=== PATIENT | male | born 1980 | race Two or more races ===

== ENCOUNTER 2018-07-12 12:26 | Emergency (ER) | payer OTHER ==
[~2018-07-12] VITALS: Ht 188 cm; Wt 104.3 kg
[2018-07-12] MEDS ORDERED: Ketorolac 60mg Inj IM ONE (13:15)
[2018-07-12 14:02] VITALS: BP 146/85
--- NOTE | 2018-07-12 14:07 | Emergency Room Report ---
History of Present Illness General Chief Complaint: Multiple Trauma/Fall Source: Patient Present Illness HPI This patient states he was on a ramp loading boxes and he lost his footing and fell hitting his back. He states the wind was knocked out of him. He has pain in his right lateral mid back. He denies chest pain. He denies shortness of breath. He denies abdominal pain. He denies head injury or trauma. He has no other complaints. Allergies: Coded Allergies: No Known Allergies (Unverified , 07/12/18) Patient History Past Medical History: none Social History: Denies: smoking, alcohol use, drug use Reviewed Nursing Documentation: PMH: Agreed; PSxH: Agreed Nursing Documentation-PMH Past Medical History: No Stated History Review of Systems All Other Systems: negative except mentioned in HPI Physical Exam Vital Signs Date Time Temp Pulse Resp B/P (MAP) Pulse Ox O2 Delivery O2 Flow Rate FiO2 07/12/18 12:22 98.2 68 17 146/85 98 Room Air 98.2 Sp02 EP Interpretation: reviewed, normal General Appearance: no apparent distress, alert, GCS 15, non-toxic Head: normocephalic, atraumatic Eyes: bilateral eye normal inspection, bilateral eye PERRL ENT: hearing grossly normal, normal pharynx, no angioedema, normal voice Neck: full range of motion, supple/symm/no masses Respiratory: chest non-tender, lungs clear, normal breath sounds, no respiratory distress, no retraction, no accessory muscle use, speaking full sentences Cardiovascular #1: regular rate, rhythm, no edema Gastrointestinal: normal bowel sounds, non tender, soft, non-distended, no guarding, no rebound Rectal: deferred Musculoskeletal: gait/station normal, normal range of motion, other - TTP mid back paraspinal m. No bony tenderness. Neurologic: alert, oriented x3, responsive, motor strength/tone normal, sensory intact, speech normal Psychiatric: judgement/insight normal, memory normal, mood/affect normal, no suicidal/homicidal ideation Skin: normal color, no rash, warm/dry, well hydrated Medical Decision Making Diagnostic Impression: Primary Impression: Back sprain ER Course This patient has a clinical presentation consistent with back muscle strain. There are no red flags on physical exam or history that would make me concerned for underlying fracture. Therefore, I do not feel that I need to obtain imaging studies. The patient has pain with range of motion and has tenderness to palpation along the muscle. There is no evidence of compartment syndrome. There is no neurologic deficit. The patient was instructed on supportive home measures. No emergency medical condition was identified. The patient was given return precautions and followup instructions. Last Vital Signs Date Time Temp Pulse Resp B/P (MAP) Pulse Ox O2 Delivery O2 Flow Rate FiO2 07/12/18 12:22 98.2 68 17 146/85 98 Room Air 98.2 Status: improved Disposition: HOME, SELF-CARE Condition: Improved Referrals: NOT CHOSEN IPA/,REFERRING (PCP) Tg Ann DO Jul 12, 2018 14:07
[2018-07-12] MEDS ORDERED: IBUPROFEN800 MG ORAL (14:12)
[2018-07-12] MEDS ORDERED: CYCLOBENZAPRINE10 MG ORAL (14:12)
[2018-07-12 14:45] VITALS: BP 146/85
== END 2018-07-12 14:47 | disposition home or self-care (01) ==
LOC: EDBD 12:26 → EMR 12:58
DX: S33.5XXA Sprain of ligaments of lumbar spine, initial encounter (principal); W17.89XA Other fall from one level to another, initial encounter; Y93.89 Activity, other specified; Y92.89 Other specified places as the place of occurrence of the external cause
CPT/HCPCS: 96372; 99283